=== PATIENT | male | born 1970 | race Caucasian/White ===

== ENCOUNTER 2021-10-29 05:20 | Inpatient (IN) | payer OTHER ==
[2021-10-29] VITALS (26 sets, daily range): BP systolic 107–179; BP diastolic 66–107
[~2021-10-29] VITALS: Ht 182.9 cm; Wt 103.8 kg
[~2021-10-29 05:20] MED LIST: ASCO500T3 PO; ASPI-630 PO; ASPI325T8 PO; ATOR40TA PO; CHOL10003 PO; DIPH25CA58 PO; DULO20CA PO; FAMO-63 PO; METO25TA2 PO; OMEG500C PO; OXYC1TAB19 PO; PANT40TA77 PO; VALS40TA2 PO; VALS80TA3 PO
[2021-10-29] MEDS ORDERED: NITROGLYCERIN SUBLINGUAL 0.4 MG BOTTLE OF 25. SL ONE (05:30)
[2021-10-29] MEDS ORDERED: NITROGLYCERIN SUBLINGUAL 0.4 MG BOTTLE OF 25. SL PRN (05:30)
[2021-10-29] MEDS ORDERED: ONDANSETRON PF 4 MG/2 ML VIAL. IV PRN (05:45)
[2021-10-29] MEDS ORDERED: HEPARIN for IV BOLUS 10,000 UNIT/10 ML VIAL. IV PRN (05:45)
[2021-10-29] MEDS ORDERED: HEPARIN 25,000UTS/250ML PREMIX 250 ML IV PRN (05:45)
[2021-10-29 05:55] LABS: BASO # 0.1 x10^3/uL (0.0-0.2); BASO % 1 % (0-3); EOS # 0.1 x10^3/uL (0.0-0.7); EOS % 1 % (0-3); HEMATOCRIT 41.1 % (39.0-53.0); HEMOGLOBIN 13.8 g/dL (13.0-17.5); LYMPH # 2.5 x10^3/uL (1.0-4.8); LYMPH % 24 % (24-48); MEAN CORPUSCULAR HEMOGLOBIN 31 pg (25-35); MEAN CORPUSCULAR HGB CONC 34 g/dL (31-37); MEAN CORPUSCULAR VOLUME 92 fL (79-100); MONO # 0.5 x10^3/uL (0.0-1.1); MONO % 5 % (0-9); NEUT # 7.3 x10^3/uL (1.8-7.7); NEUT % 70 % (31-73); PLATELET COUNT 220 x10^3/uL (140-400); RED BLOOD COUNT 4.47 x10^6/uL (4.30-5.70); WHITE BLOOD COUNT 10.5 x10^3/uL (4.0-11.0)
--- NOTE | 2021-10-29 06:00 | NUR ---
Transferred to ICU from [facility]. Arrived to ICU via cot. Assisted to bed. Patient alert and oriented and answers questins appropriately. Complaint of chest pain, constant, increasing intermittently. Chest pain started approximately 1500H. Heparin infusing. Hypertensive. Dr. Coburn notified of admit. Orders received.
[2021-10-29] MEDS: MORPHINE SULFATE 4 MG/ML INJ. IV PRN ×2 (06:08→09:00)
[2021-10-29] MEDS ORDERED: METOPROLOL IV PUSH 5 MG/5 ML VIAL. IVP PRN (06:15)
[2021-10-29 06:16] LABS: CALCIUM 8.8 mg/dL (8.5-10.1); CREATININE 0.9 mg/dL (0.7-1.3); GFR 88.6; POTASSIUM 4.1 mmol/L (3.5-5.1)
[2021-10-29] MEDS: NITROGLYCERIN OINT 1 GM PACKET. TP SCH ×2 (07:25→12:00)
[2021-10-29] MEDS ORDERED: MORPHINE SULFATE 2 MG/ML INJ. IVP ONE (09:00)
--- NOTE | 2021-10-29 09:09 | PDOC2 ---
STEPHON CERRATO TRAVEL ATTENDANTS 10/29/21 0909: CARDIAC CONSULT DATE OF CONSULT Date of Consult DATE: 10/29/21 TIME: 08:40 REASON FOR CONSULT Reason for Consult: chest pain REFERRING PHYSICIAN Referring Physician: Noel SOURCE Source: Chart review, Patient HISTORY OF PRESENT ILLNESS HISTORY OF PRESENT ILLNESS This is a 51 yo male admitted for complains of chest pain. He was at [facility] initially and transferred to [facility] for further treatment. He has CAD and had PCI in the past with total of 4 stents. He has not taken any of his meds for about a yr. Denies any nausea, SOA or palpitations. No recent falls or injury and no fever/chills. His chest pain is midchest and throbbing and started yesterday. He knows that he is suppose to take his meds but has been noncompliant. 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 He continues to smoke tobacco. He is currently still having chest pain. PAST MEDICAL HISTORY Cardiovascular: CAD, HTN, Hyperlipidemia GI: GERD Heme/Onc: Other (DVT) PAST SURGICAL HISTORY Past Surgical History: Other (PCI total of 4 stents) FAMILY HISTORY Family History: Coronary Artery Disease (premature father [place] in his 30s and from [place] in his 50s) SOCIAL HISTORY Smoke: Quit ALCOHOL: none Drugs: None Lives: with Family CURRENT MEDICATIONS CURRENT MEDICATIONS Current Medications Medications (Trade) Dose Ordered Sig/Makayla Route PRN Reason Start Time Stop Time Status Last Admin Dose Admin Nitroglycerin (Nitrostat) 0.4 mg PRN Q5MIN PRN SL CHEST PAIN 10/29/21 05:30 10/29/21 05:31 Heparin Sodium (Porcine) (Heparin Sodium) 2,700 unit PRN Q6HRS PRN IV FOR UFH LEVEL LESS THAN 0.2 10/29/21 05:45 10/29/21 07:25 Morphine Sulfate (Morphine Sulfate) 2 mg PRN Q2HR PRN IV PAIN 10/29/21 06:00 10/29/21 06:08 Nitroglycerin (Nitro-Bid Oint) 1 inch Q6HRS TP 10/29/21 06:15 10/29/21 07:25 ALLERGIES ALLERGIES: Coded Allergies: lisinopril (Verified Allergy, Severe, ANGIOEDEMA, 10/30/21) bupropion (Verified Allergy, Intermediate, 12/07/14) niacin (Verified Allergy, Intermediate, 12/07/14) ROS Review of System 14 point ROS evlauated with pertinent positives noted per HPI PHYSICAL EXAM General: Alert, Oriented X3, Cooperative, No acute distress HEENT: Atraumatic, Mucous membr. moist/pink Lungs: Clear to auscultation, Normal air movement Heart: Regular rate (SR), Normal S1, Normal S2, No murmurs Abdomen: Soft, No tenderness Extremities: No cyanosis, No edema Skin: No breakdown, No significant lesion Neuro: Normal speech, Sensation intact Psych/Mental Status: Mental status NL, Mood NL MUSCULOSKELETAL: Full range of motion without pain VITALS/I&O VITALS/I&O: Vital Signs Date Time Temp Pulse Resp B/P (MAP) Pulse Ox O2 Delivery O2 Flow Rate FiO2 10/29/21 07:25 88 163/88 10/29/21 06:30 16 93 Room Air 10/29/21 05:15 98.6 98.6 LABS Lab: Laboratory Tests Test 10/29/21 05:45 White Blood Count 10.5 x10^3/uL (4.0-11.0) Red Blood Count 4.47 x10^6/uL (4.30-5.70) Hemoglobin 13.8 g/dL (13.0-17.5) Hematocrit 41.1 % (39.0-53.0) Mean Corpuscular Volume 92 fL (79-100) Mean Corpuscular Hemoglobin 31 pg (25-35) Mean Corpuscular Hemoglobin Concent 34 g/dL (31-37) Red Cell Distribution Width 13.0 % (11.5-14.5) Platelet Count 220 x10^3/uL (140-400) Neutrophils (%) (Auto) 70 % (31-73) Lymphocytes (%) (Auto) 24 % (24-48) Monocytes (%) (Auto) 5 % (0-9) Eosinophils (%) (Auto) 1 % (0-3) Basophils (%) (Auto) 1 % (0-3) Neutrophils # (Auto) 7.3 x10^3/uL (1.8-7.7) Lymphocytes # (Auto) 2.5 x10^3/uL (1.0-4.8) Monocytes # (Auto) 0.5 x10^3/uL (0.0-1.1) Eosinophils # (Auto) 0.1 x10^3/uL (0.0-0.7) Basophils # (Auto) 0.1 x10^3/uL (0.0-0.2) Heparin Anti-Xa Act, Unfractionated 0.11 IU/mL (0.30-0.70) L Sodium Level 136 mmol/L (136-145) Potassium Level 4.1 mmol/L (3.5-5.1) Chloride Level 100 mmol/L (98-107) Carbon Dioxide Level 28 mmol/L (21-32) Anion Gap 8 (6-14) Blood Urea Nitrogen 13 mg/dL (8-26) Creatinine 0.9 mg/dL (0.7-1.3) Estimated GFR (Cockcroft-Gault) 88.6 Glucose Level 111 mg/dL (70-99) H Calcium Level 8.8 mg/dL (8.5-10.1) Magnesium Level 2.0 mg/dL (1.8-2.4) Troponin I High Sensitivity 833 ng/L (4-75) H Laboratory Tests 10/29/21 05:45 Laboratory Tests 10/29/21 05:45 ASSESSMENT/PLAN ASSESSMENT/PLAN 1. NSTEMI/ACS 2. CAD: prior remote stents 3. HTN: labile 4. HLP 5. Tobacco abuse with suspected COPD 6. Poor treatment compliance: off meds for at least a yr Recommendations 1. LHC with possible PCI, risks and benefits discussed and agreeable to proceed 2. ASA. heparin drip. Morphine x1. continue NTG paste 3. Start coreg. Notable for angioedema with ACEi 4. FLP, TSH, TTE. Covid-19 swab result pending, unvaccinated 5. Smoking cessation, discussed compliance. FLORES ZULETA MD 10/30/21 0601: CARDIAC CONSULT ASSESSMENT/PLAN ASSESSMENT/PLAN Patient seen and examined. Agree with OCCUPATIONAL THERAPY DIRECTOR's assessment and plan. Agree with cardiac cath to evaluate patient's NSTEMI Continue hep infusion per protocol Check 2D echo to assess LVF Thank you for your consultation STEPHON CERRATO APRN October 29, 2021 09:09 FLORES ZULETA MD October 30, 2021 06:01
[2021-10-29] MEDS: ASPIRIN ENTERIC COATED 81 MG TABLET.DR. PO SCH (09:17)
[2021-10-29] MEDS: CARVEDILOL 6.25 MG TABLET. PO SCH ×2 (09:17→18:42)
--- NOTE | 2021-10-29 10:42 | EKG ---
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
[2021-10-29] MEDS ORDERED: ANTI-COAG MONITOR BY PHARMACY. MC PRN (11:15)
[2021-10-29] MEDS ORDERED: LIDOCAINE 1% Multi-Dose 20 ML VIAL. ONE (11:32)
[2021-10-29] MEDS ORDERED: IODIXANOL 320 MG/ML 100 ML VIAL. ONE ×2 (11:32→12:25)
--- NOTE | 2021-10-29 11:36 | PDOC ---
MODERATE SEDATION ASSESSMENT RISKS/ALTERNATIVES Risks/Alternatives Risks and alternatives of this type of sedation and procedure discussed with: RISK/ALTERNATIVES: Patient H & P ON CHART H & P H & P on chart and reviewed for co-morbid conditions and appropriate labs. H&P ON CHART: Yes STATUS PREG STATUS ASSESSED: N/A MEDS/ALLERGIES REVIEWED Meds/Allergies Reviewed Medications and Allergies including time and route of recently administered narcotics and sedatives. MEDS/ALLERGIES REVIEWED: Yes ASA RATING ASA RATING: II AIRWAY ASSESSMENT Airway Assessment Airway patency, oral function limitations, presence of caps, crowns, dentures, partials, and ability to extend neck assessed. AIRWAY ASSESSMENT: Yes MALLAMPATI SCORE MALLAMPATI SCORE: II PRE-SEDATION ASSESSMENT PRE-SEDATION ASSESSMENT: Yes FLORES ZULETA MD October 29, 2021 11:36
[2021-10-29] MEDS ORDERED: HEPARIN for IV BOLUS 10,000 UNIT/10 ML VIAL. ONE (11:47)
[2021-10-29] MEDS ORDERED: VERAPAMIL 5 MG/2 ML VIAL. ONE (11:47)
[2021-10-29] MEDS ORDERED: fentaNYL PF VIAL 100 MCG/2 ML VIAL ONE (11:47)
[2021-10-29] MEDS ORDERED: MIDAZOLAM HCL/PF 2 MG/2 ML VIAL. ONE ×2 (11:47→12:10)
[2021-10-29] MEDS ORDERED: NITROGLYCERIN 200 MCG/2 ML SYRINGE FOR CATH/VASC LAB. ONE ×3 (11:47→12:29)
[2021-10-29] MEDS ORDERED: LIDOCAINE 1% PF 2 ML VIAL. ONE (11:54)
[2021-10-29] MEDS ORDERED: BIVALIRUDIN 250 MG VIAL. IVP ONE ×2 (12:16→12:45)
[2021-10-29] MEDS ORDERED: ASPIRIN 325 MG TABLET PO ONE (12:45)
[2021-10-29] MEDS ORDERED: IODIXANOL 320 MG/ML 100 ML VIAL. IART ONE (12:45)
[2021-10-29] MEDS ORDERED: VERAPAMIL 5 MG/2 ML VIAL. IART ONE (12:45)
[2021-10-29] MEDS ORDERED: MIDAZOLAM HCL/PF 2 MG/2 ML VIAL. IV ONE (12:45)
[2021-10-29] MEDS ORDERED: fentaNYL PF VIAL 100 MCG/2 ML VIAL IV ONE (12:45)
[2021-10-29] MEDS ORDERED: LIDOCAINE 1% PF 2 ML VIAL. INJ ONE (12:45)
[2021-10-29] MEDS ORDERED: HEPARIN for IV BOLUS 10,000 UNIT/10 ML VIAL. IART ONE (12:45)
[2021-10-29] MEDS ORDERED: NITROGLYCERIN 200 MCG/2 ML SYRINGE FOR CATH/VASC LAB. IART ONE (12:45)
[2021-10-29] MEDS ORDERED: TICAGRELOR 90 MG TABLET. PO ONE (12:45)
[2021-10-29] MEDS ORDERED: TICAGRELOR 90 MG TABLET. ONE (12:53)
[2021-10-29] MEDS ORDERED: ASPIRIN 325 MG TABLET ONE (12:54)
[2021-10-29] MEDS ORDERED: 0.9 % SODIUM CHLORIDE 10 ML DISP.SYRIN. IV PRN (13:00)
[2021-10-29] MEDS ORDERED: ACETAMINOPHEN 325 MG TABLET. PO PRN (13:00)
[2021-10-29] MEDS ORDERED: CONTRAST GIVEN. MC PRN (13:00)
[2021-10-29] MEDS: IV 1/2 NORMAL SALINE 1,000 ML IV SCH ×2 (13:00→22:40)
--- NOTE | 2021-10-29 13:09 | CARD ---
MR#: [id number] Date of Study: 10/29/2021 Ordering Physician: FLORES ZULETA, Referring Physician: FLORES ZULETA, Tech: RT Emani(R) APPROVED REPORT Technologist: Holley Lundy RT(R) Nurse: JOHN VALDES Procedure(s) performed: 1. Left heart catheterization, selective coronary angiography via right leblanc sulnar approach 2. Successful balloon PTCA to in-stent thrombosis involving the obtuse marginal branch of left circu mflex artery 3. Successful PCI/drug-eluting stent placement to the left anterior descending artery MODERATE SEDATION TIME: 56 MINUTES FLUORO TIME: 12.5 MIN DOSE: 141.3 GYCM2 CONTRAST: 179CC VISI INDICATION The indication(s) include : non-STEMI . [facility] Clinical Frailty Scale [facility] Clinical Frailty Scale: Mildly Frail Heart Failure Heart Failure: No CASE TECHNIQUE IV conscious sedation was used throughout procedure with appropriate monitoring and was performed in the presence of a registered nurse who was an independent trained observer other than the physician p erforming the procedure. During this case, Fluoroscopy and low osmolar contrast were used for imaging . Specimen(s) Removed: No Estimated Blood loss: 15 cc's. PROCEDURE NARRATIVE After explaining the risks, benefits and alternative options, informed consent was obtained from hayden ent. Patient was brought to the cardiac Tableau Analyst and right wrist was prepped and draped in the usual fashion after confirming a positive modified Malcolm's test. Arterial access was obtained in the righ t ulnar artery and a 6 Latvian sheath was inserted. 6 Latvian Olman catheter was used to perform jair ctive angiography of the left and right coronary arteries. LVEDP and transaortic gradients were brittany ured. The following findings were noted. FINDINGS 1. Hemodynamics: Left ventricular end-diastolic pressure of 16 mmHg. No pullback gradient across th e aortic valve. 2. Coronary angiography: a. The left main coronary artery arose from the left sinus of Valsalva, gave rise to the left anteri or descending and left circumflex arteries and did not show any significant stenosis. b. The left anterior descending artery showed 70 to 80% stenosis involving the mid to distal segment . c. The left circumflex artery showed 100% thrombotic occlusion within the stent in the proximal segm ent of a large obtuse marginal branch. d. The right coronary artery was a large and dominant vessel arising from the right sinus of Valsalv a that showed 30% in-stent restenosis in the midsegment. INTERVENTIONS The left main coronary artery was engaged with a 6 Latvian XB 3-1/2 guide catheter. The occlusion wit hin the stent in the obtuse marginal branch of left circumflex artery was crossed with a 0.014 inch A shiela Prowater guidewire. Multiple inflations were then performed within the occlusion using 2.5 x 12 mm sapphire pro balloon followed by 3.0 x 15 mm NC Euphora noncompliant balloon. Follow-up angiogra phy showed resolution of the lesion with BIJAN-3 distal flow. Subsequently, the stenosis in the left anterior descending artery was crossed with the same guidewire. The lesion was dilated with the 2.5 balloon following which it was successfully treated with a 2.5 x 15 mm resolute Ollie drug-eluting leny nt. Follow-up angiography showed resolution of the stenosis to 0% with BIJAN-3 distal flow. Patient tolerated the procedure well. Hemostasis was achieved using TR band. There were no immediate compli cations. BIJAN Flow BIJAN Flow (Pre-Intervention): BIJAN-0 BIJAN Flow (Post-Intervention): BIJAN-3 BIJAN Flow BIJAN Flow (Pre-Intervention): BIJAN-3 BIJAN Flow (Post-Intervention): BIJAN-3 Conclusion 1. 100% thrombotic occlusion within the stent in the proximal segment of a good caliber obtuse otis nal branch of left circumflex artery. The previously placed stent in the right coronary artery was p atent. The left anterior sending artery showed 70 to 80% stenosis in the mid to distal segment. 2. Successful balloon PTCA to in-stent occlusion of the obtuse marginal branch of left circumflex ar abbie. 3. Successful PCI/drug-eluting stent placement to the left anterior descending artery. Recommendations 1. Aspirin 81 mg daily 2. Ticagrelor 90 mg twice daily 3. Cardiovascular risk factor modification Signed by : Flores Zuleta, Electronically Approved : 10/29/2021 13:08:24
--- NOTE | 2021-10-29 15:17 | HP ---
DATE OF SERVICE: 10/29/2021 ADMIT DATE: 10/29/2021 CHIEF COMPLAINT: Chest pain. HISTORY OF PRESENT ILLNESS: The patient is a pleasant 51-year-old male who presented to the ER last night with chest pain. He was actually transferred from [facility] as he has known coronary artery disease and needs a cardiac catheterization. The patient is currently being examined in the ICU where he is awaiting cardiac catheterization this afternoon. It should be noted that he has 4 previous stents. PAST MEDICAL HISTORY: CAD, hypertension, hyperlipidemia, GERD, 4 previous cardiac stents, and DVT. ALLERGIES: BUPROPION, LISINOPRIL AND NIACIN. FAMILY HISTORY: Diabetes and coronary artery disease. SOCIAL HISTORY: He still smokes but he states he quit yesterday. No drink or drugs. MEDICATIONS: Reviewed, please refer to the MRAD. REVIEW OF SYSTEMS: GENERAL: No history of weight change, weakness or fevers. SKIN: No bruising, hair changes or rashes. EYES: No blurred, double or loss of vision. NOSE AND THROAT: No history of nosebleeds, hoarseness or sore throat. HEART: No history of palpitations, chest pain or shortness of breath on exertion. LUNGS: Denies cough, hemoptysis, wheezing or shortness of breath. GASTROINTESTINAL: Denies changes in appetite, nausea, vomiting, diarrhea or constipation. GENITOURINARY: No history of frequency, urgency, hesitancy or nocturia. NEUROLOGIC: Denies history of numbness, tingling, tremor or weakness. PSYCHIATRIC: No history of panic, anxiety or depression. ENDOCRINE: No history of heat or cold intolerance, polyuria or polydipsia. EXTREMITIES: Denies muscle weakness, joint pain, pain on walking or stiffness. PHYSICAL EXAMINATION: VITALS: Within normal limits and are stable. GENERAL: No apparent distress. Alert and oriented. HEENT: Normal cephalic atraumatic, external auditory canals are patent EYES: Extraocular muscles are intact, pupils are equally round and reactive to light and accommodation MUSCULOSKELETAL: Well developed, well nourished, good range of motion ENDOCRINE: No thyromegaly was palpated LYMPHATICS: No cervical chain or axillary nodes were noted HEMATOPOIETIC: No bruising NECK: Supple, no JVD, no thyromegaly was noted. LUNGS: Clear to auscultation in all lung lopez without rhonchi or wheezing. HEART: RRR, S1, S2 present. Peripheral pulses intact, no obvious murmurs were noted. ABDOMEN: Soft, nontender. Positive bowel sounds no organomegaly, normal bowel sounds. EXTREMITIES: Without any cyanosis, clubbing, or edema. Pedal pulses intact, Homans sign is negative. NEUROLOGIC: Normal speech, normal tone. A and O x3, moves all extremities, no obvious focal deficits. PSYCHIATRIC: Normal affect, normal mood. Stable. SKIN: No ulcerations or rashes, good skin turgor, no jaundice. VASCULAR: Good capillary refill, neurovascular bundle appears to be intact. LABORATORY DATA: Hematology is normal. Troponin is high at 833. ASSESSMENT AND PLAN: Chest pain with elevated troponin, suspect myocardial infarction in a middle-aged male who has known coronary artery disease and 4 previous stents. 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 For now, continue intensive care unit monitoring, home meds, deep venous thrombosis prophylaxis. Full code. P.r.n. nitro, heparin. Prognosis guarded. ALEX DR: Angela TID: [id number]
--- NOTE | 2021-10-29 17:08 | CARD ---
MR#: [id number] Date of Study: 10/29/2021 Ordering Physician: STEPHON CERRATO, Referring Physician: STEPHON CERRATO, Ruma: Maria Dolores Zheng APPROVED REPORT EXAM: Two-dimensional and M-mode echocardiogram with Doppler and color Doppler. Other Information Quality : AverageHR: 68bpm Rhythm : NSR INDICATION Non STEMI 2D DIMENSIONS RVDd3.4 (2.9-3.5cm)Left Atrium(2D)3.4 (1.6-4.0cm) IVSd1.6 (0.7-1.1cm)LVDd5.0 (3.9-5.9cm) LVOT Diameter2.1 (1.8-2.4cm)PWd1.2 (0.7-1.1cm) LVDs2.4 (2.5-4.0cm)FS (%) 51.0 % SV95.7 mlLVEF(%)82.0 (>50%) Aortic Valve AoV Peak Americo.142.2cm/Terri Peak GR.8.1mmHg LVOT Peak Amercio.78.2cm/sAVA (VMAX)1.82cm2 Mitral Valve MV E Smclzdrv11.2cm/sMV DECEL BSJF110sa MV A Yahzkkwi59.3cm/sE/A Ratio1.1 Pulmonary Valve PV Peak Wuxwyvdv138.6cm/s LEFT VENTRICLE The left ventricle is normal size. There is normal left ventricular wall thickness. Left ventricular systolic function is mildly decreased. EF 45% There is mild global hypokinesis. The left ventricular diastolic function is normal. No left ventricle thrombus noted on this study. There is no ventricular septal defect visualized. There is no left ventricular aneurysm. There is no mass noted in the left ventricle. RIGHT VENTRICLE The right ventricle is normal size. There is normal right ventricular wall thickness. The right ventr icular systolic function is normal. ATRIA The left atrium size is normal. The right atrium size is normal. The interatrial septum is intact wit h no evidence for an atrial septal defect or patent foramen ovale as noted on 2-D or Doppler imaging. AORTIC VALVE The aortic valve is normal in structure and function. No aortic regurgitation is present. There is no aortic valvular stenosis. There is no aortic valvular vegetation. MITRAL VALVE The mitral valve is normal in structure and function. There is no evidence of mitral valve prolapse. There is no mitral valve stenosis. There is no mitral valve regurgitation noted. TRICUSPID VALVE The tricuspid valve is normal in structure and function. There is no tricuspid valve regurgitation no brady. There is no tricuspid valve prolapse or vegetation. There is no tricuspid valve stenosis. PULMONIC VALVE There is no pulmonic valvular regurgitation. There is no pulmonic valvular stenosis. GREAT VESSELS The aortic root is normal in size. The ascending aorta is normal in size. The IVC is normal in size a nd collapses >50% with inspiration. PERICARDIAL EFFUSION There is no pleural effusion. There is no evidence of significant pericardial effusion. Critical Notification Critical Value: No <Conclusion> Left ventricular systolic function is mildly decreased. EF 45% There is mild global hypokinesis. Signed by : Nasir Pimentel, Electronically Approved : 10/29/2021 17:08:29
[2021-10-30] VITALS: BP 140/85
[2021-10-30 04:01] VITALS: BP 156/97
[2021-10-30 08:00] VITALS: BP 170/94
--- NOTE | 2021-10-30 08:09 | PDOC ---
[employer] PROGRESS NOTE Date of Service DOS: DATE: 10/30/21 TIME: 08:08 Chief Complaint Chief Complaint Status post cardiac cath with 1 new stent to the LAD and reopening of the obtuse marginal stent History of 4 previous stents CAD Tobacco abuse (quit smoking 2 days ago) AD, hypertension, hyperlipidemia, GERD, 4 previous cardiac stents, and DVT. History of Present Illness History of Present Illness 10/30/2021 Patient seen and examined Discussed with RN He got 1 new stent yesterday and reopening of the obtuse marginal stent Clinically looks great wants to go home Vitals/I&O Vitals/I&O: Vital Signs Date Time Temp Pulse Resp B/P (MAP) Pulse Ox O2 Delivery O2 Flow Rate FiO2 10/30/21 04:01 98.5 82 18 156/97 (116) 95 Room Air 98.5 I & O 10/29/21 10/29/21 10/30/21 15:00 23:00 07:00 Intake Total 685 ml 60 ml Output Total 0 ml 750 ml Balance 0 ml 685 ml -690 ml Physical Exam General: Alert, Oriented X3, Cooperative, No acute distress Heart: Regular rate (SR), Normal S1, Normal S2, No murmurs Lungs: Clear, Other Abdomen: Soft, No tenderness Extremities: No cyanosis, No edema Skin: No breakdown, No significant lesion Labs Labs: Laboratory Tests Test 10/29/21 08:50 10/29/21 13:49 SARS-CoV-2 Antigen (Rapid) Negative (NEGATIVE) Heparin Anti-Xa Act, Unfractionated < 0.10 IU/mL (0.30-0.70) Assessment and Plan Assessmemt and Plan Status post cardiac cath with 1 new stent to the LAD and reopening of the obtuse marginal stent History of 4 previous stents CAD Tobacco abuse (quit smoking 2 days ago) AD, hypertension, hyperlipidemia, GERD, 4 previous cardiac stents, and DVT. Plan Discharge if okay with cardiology Comment Review of Relevant I have reviewed the following items joe (where applicable) has been applied. Medications: Current Medications Medications (Trade) Dose Ordered Sig/Makayla Route PRN Reason Start Time Stop Time Status Last Admin Dose Admin Morphine Sulfate (Morphine Sulfate) 2 mg 1X ONCE IVP 10/29/21 09:00 10/29/21 09:01 DC 10/29/21 09:16 Aspirin (Ecotrin) 81 mg DAILYWBKFT PO 10/29/21 09:00 10/29/21 09:17 Carvedilol (Coreg) 6.25 mg BIDWMEALS PO 10/29/21 09:00 10/29/21 18:42 Nitroglycerin (Nitroglycerin) 600 mcg 1X ONCE IART 10/29/21 12:45 10/29/21 12:50 DC 10/29/21 12:45 Verapamil HCl (Verapamil) 2.5 mg 1X ONCE IART 10/29/21 12:45 10/29/21 12:50 DC 10/29/21 12:45 Heparin Sodium (Porcine) (Heparin Sodium) 2,500 unit 1X ONCE IART 10/29/21 12:45 10/29/21 12:50 DC 10/29/21 12:45 Heparin Sodium/ Sodium Chloride (HEPARIN for ARTERIAL LINE FLUSH) 1,000 unit 1X ONCE IART 10/29/21 12:45 10/29/21 12:50 DC 10/29/21 12:45 Midazolam HCl (Versed) 2 mg 1X ONCE IV 10/29/21 12:45 10/29/21 12:50 DC 10/29/21 12:17 Fentanyl Citrate (Fentanyl 2ml Vial) 100 mcg 1X ONCE IV 10/29/21 12:45 10/29/21 12:50 DC 10/29/21 12:05 Iodixanol (Visipaque 320) 100 ml 1X ONCE IART 10/29/21 12:45 10/29/21 12:50 DC 10/29/21 12:45 Bivalirudin (Angiomax) 250 mg 1X ONCE IVP 10/29/21 12:45 10/29/21 12:50 DC 10/29/21 12:45 Ticagrelor (Brilinta) 180 mg 1X ONCE PO 10/29/21 12:45 10/29/21 12:50 DC 10/29/21 12:45 Aspirin (Christofer Aspirin) 325 mg 1X ONCE PO 10/29/21 12:45 10/29/21 12:50 DC 10/29/21 12:45 Lidocaine HCl (Xylocaine-Mpf 1% 2ml Vial) 2 ml 1X ONCE INJ 10/29/21 12:45 10/29/21 12:50 DC 10/29/21 12:45 Sodium Chloride 1,000 ml @ 100 mls/hr Q10H IV 10/29/21 13:00 10/29/21 22:40 Justifications for Admission Other Justification WILMAR AVENDAÑO III DO October 30, 2021 08:09
[2021-10-30] MEDS ORDERED: NITR0.4T24 SL (08:12)
[2021-10-30] MEDS ORDERED: CARV6.2511 PO (08:12)
[2021-10-30] MEDS ORDERED: TICA90TA PO (08:12)
[2021-10-30] MEDS: ASPIRIN ENTERIC COATED 81 MG TABLET.DR. PO SCH (08:37)
[2021-10-30] MEDS: CARVEDILOL 6.25 MG TABLET. PO SCH (08:37)
[2021-10-30] MEDS: IV 1/2 NORMAL SALINE 1,000 ML IV SCH (08:39)
[2021-10-30] MEDS ORDERED: TICAGRELOR 90 MG TABLET. PO SCH (09:00)
--- NOTE | 2021-10-30 09:36 | PDOC ---
STEPHON CERRATO CARPET JACK 10/30/21 0935: CARDIO Progress Notes Date and Time Date of Service 10/30/2021 Time of Evaluation 0910 Subjective Subjective: No Chest Pain, No shortness of breath, No Palpitations Vitals Vitals Vital Signs Date Time Temp Pulse Resp B/P (MAP) Pulse Ox O2 Delivery O2 Flow Rate FiO2 10/30/21 08:37 97 170/94 10/30/21 08:00 98.6 17 98 Room Air 98.6 Weight Weight [ ] Input and Output Intake and Output Intake and Output 10/30/21 07:00 Intake Total 745 ml Output Total 750 ml Balance -5 ml Intake Oral 180 ml IV Total 565 ml Output Urine Total 750 ml # Voids 1 Laboratory Labs Laboratory Tests Test 10/29/21 13:49 Heparin Anti-Xa Act, Unfractionated < 0.10 IU/mL (0.30-0.70) Physical Exam HEENT: Neck Supple W Full Motion Chest: Symmetric LUNGS: Clear to Auscultation Heart: S1S2, RRR (SR) Abdomen: Soft N/T Extremities: No Edema, No Calf Tenderness Neurology: alert, oriented, follow commands Assessment Assessment 1. NSTEMI/ACS: S/P PTCA of ISR of the OM of the LCx and PCI/GALILEO to LAD 2. CAD: prior remote stents 3. HTN: labile 4. HLP 5. Tobacco abuse with suspected COPD 6. Poor treatment compliance: off meds for at least a yr Recommendations 1. Reports that he has [place] medicaid. SS consult 2. Full dose ASA for 1 mo then 81 mg po daily indefinitely. Effient. high dose statin 3. Cardiac rehab 4. Increase coreg and add norvasc Notable for angioedema with ACEi 5. Smoking cessation, discussed compliance. Follow up in office Justicifation of Admission Dx: Justifications for Admission: Justification of Admission Dx: Yes FLORES ZULETA MD 10/30/21 1605: CARDIO Progress Notes Assessment Assessment Patient seen and examined. Agree with SPRAY BLENDER's assessment and plan. Non-STEMI, s/p successful PTCA to in-stent thrombotic occlusion of OM/LCx and PCI/GALILEO to LAD. The previously placed stent in RCA is patent. 2D echo showed LVEF 45%, clinically well compensated Telemetry did not show any significant arrhythmias Continue current medical regimen and follow-up as scheduled STEPHON CERRATO APRN October 30, 2021 09:35 FLORES ZULETA MD October 30, 2021 16:09
[2021-10-30] MEDS ORDERED: ATOR40TA PO (11:03)
[2021-10-30] MEDS ORDERED: CARV12.5 PO (11:04)
[2021-10-30] MEDS ORDERED: AMLO5TAB4 PO (11:08)
[2021-10-30] MEDS ORDERED: PRAS10TA9 PO (11:49)
[2021-10-30 12:00] VITALS: BP 156/113
[2021-10-30] MEDS ORDERED: ASPI325T8 PO (13:07)
[2021-10-30] MEDS ORDERED: MORPHINE SULFATE 2 MG/ML INJ. IVP PRN (14:00)
--- NOTE | 2021-10-30 14:48 | NUR ---
Discharge Note: EMELY MCDONALD F1 [facility] ICU Discharge instructions and discharge home medications reviewed with Patient and a copy given. Pharmacy called to confirm transmit of medication. The following instructions and handouts were given: Post cardiac catheterization and coronary artery disease. Discontinued iv lines and catheter intact. Patient discharged to home with self-care accompanied by significant other.
[2021-10-30] MEDS ORDERED: CARVEDILOL 12.5 MG TABLET. PO SCH (17:00)
[2021-10-30] MEDS ORDERED: ATORVASTATIN CALCIUM 40 MG TABLET. PO SCH (21:00)
--- NOTE | 2021-10-31 17:32 | DS ---
DATE OF DISCHARGE: 10/30/2021 ADMISSION DIAGNOSIS: Acute myocardial infarction with previous history of 4 cardiac stents. DISCHARGE DIAGNOSIS: Status post cardiac catheterization with another stent placed (he now has a total of 5 stents). HOSPITAL COURSE: The patient is a pleasant 51-year-old male who continues to smoke. He has coronary artery disease and had 4 previous stents. Once again, he presented with chest pain. His troponin has bumped up. His EKG was showing changes. We consulted Cardiology, was taken to the cardiac catheterization lab where he got another stent to the LAD. Yesterday, I saw him and examined him. He was doing well. He wanted to go home. We discharged to home. DISPOSITION: Home. ACTIVITY: As tolerated. DIET: Low-sodium, cardiac. MEDICATIONS: Please see the MRAD. P.r.n. nitroglycerin, Effient 10 mg a day, amlodipine 5 daily, aspirin 81 a day, atorvastatin 40 a day, carvedilol 12.5 b.i.d., vitamin D, Cymbalta 30 at bedtime, fish oil, p.r.n. Percocet 7.5 mg q. 6 hours and Protonix 40 a day. Total time 34 minutes. VIOLETTA/HARDY/GRACIA DR: VIOLETTA/madison TID: [id number]
== END 2021-10-30 16:14 | disposition home or self-care (01) | DRG 246 ==
LOC: 1 WEST ICU 05:20
PROVIDERS: ADMIT Internal Medicine; ATTEND Internal Medicine
PROC: 02703ZZ Dilation of Coronary Artery, One Artery, Percutaneous Approach (ICD-10-PCS; principal; 2021-10-29)
PROC: 027034Z Dilation of Coronary Artery, One Artery with Drug-eluting Intraluminal Device, Percutaneous Approach (ICD-10-PCS; 2021-10-29)
PROC: 4A023N7 Measurement of Cardiac Sampling and Pressure, Left Heart, Percutaneous Approach (ICD-10-PCS; 2021-10-29)
PROC: B211YZZ Fluoroscopy of Multiple Coronary Arteries using Other Contrast (ICD-10-PCS; 2021-10-29)
DX: T82.855A Stenosis of coronary artery stent, initial encounter (principal); I21.4 Non-ST elevation (NSTEMI) myocardial infarction; E78.5 Hyperlipidemia, unspecified; I10 Essential (primary) hypertension; I25.10 Atherosclerotic heart disease of native coronary artery without angina pectoris; Z20.822 Contact with and (suspected) exposure to COVID-19; K21.9 Gastro-esophageal reflux disease without esophagitis; Z82.49 Family history of ischemic heart disease and other diseases of the circulatory system; Z83.3 Family history of diabetes mellitus; Z91.19 Patient's noncompliance with other medical treatment and regimen; Z95.5 Presence of coronary angioplasty implant and graft; Y83.1 Surgical operation with implant of artificial internal device as the cause of abnormal reaction of the patient, or of later complication, without mention of misadventure at the time of the procedure; Z88.8 Allergy status to other drugs, medicaments and biological substances; F17.210 Nicotine dependence, cigarettes, uncomplicated; T78.3XXA Angioneurotic edema, initial encounter; Z71.6 Tobacco abuse counseling; Z86.718 Personal history of other venous thrombosis and embolism; Z79.01 Long term (current) use of anticoagulants
CPT/HCPCS: 36415; 80048; 80061; 83735; 84443; 84484; 85025; 85520; 87426; 92920; 92928; 93005; 93306; 93458; 99152; 99153; C1725; C1769; C1874; C1894; J0583; J1644; J2250; J2270; J3010; J3490; Q9967; C8929; G0378